=== PATIENT | male | born 1985 | race Caucasian/White ===

== ENCOUNTER 2020-03-02 17:52 | Outpatient (CLI) | payer OTHER, SELFPAY ==
--- NOTE | ~2020-03-02 | XR_ITS ---
EXAMINATION: XR chest 2V 03/02/2020 18:08 INDICATION: Dyspnea, shortness of breath and chest tightness PROCEDURE: 2 view chest COMPARISON: No prior studies for comparison. FINDINGS: The lungs are clear. The cardiomediastinal silhouette is within normal limits. There are no pleural effusions. There is no pneumothorax suspected. IMPRESSION: 1: NO ACUTE CARDIOPULMONARY DISEASE. Reviewed, dictated and finalized at location A.
== END 2020-03-02 17:53 | disposition home or self-care (01) ==
PROVIDERS: PCP Nurse Practitioner Family; Visit Provider Nurse Practitioner Family
DX: R06.00 Dyspnea, unspecified (principal)
CPT/HCPCS: 71046

== ENCOUNTER 2021-11-18 01:04 | Emergency (ER) | payer OTHER, SELFPAY ==
--- NOTE | ~2021-11-18 | XR_ITS ---
XR knee LT 2V DATE: 11/18/2021 01:56 INDICATION: Pain. History of the staff infection. TECHNIQUE: AP and lateral views COMPARISON: None FINDINGS: No fracture or dislocation or joint effusion. Joint spaces are preserved. No periosteal chris ction or bone destruction. No radiopaque intra-articular loose body or chondrocalcinosis. IMPRESSION: Negative Reviewed, dictated and finalized at location A. IMPRESSION: Negative
[2021-11-18 01:05] VITALS: BP 133/88; PULSE 89; RESP 16; TEMP 36.4; O2SAT 100
--- NOTE | 2021-11-18 01:23 | ED.WOUNDLAC ---
HPI - Wound/Laceration General Chief Complaint: Wound/Laceration Stated Complaint: left knee infection Time Seen by Provider: 11/18/21 01:12 History of Present Illness HPI narrative: Patient is a 36-year-old male here for evaluation of atraumatic left knee pain for the past 2 weeks. Patient states that the pain is worse with movement and with ambulation, although he has been able to do both. Has not attempted any medication for his pain. Got worse at work today while he was moving around which prompted his ED visit. He tells me that he has a history of a staph infection on his knee that was treated with oral antibiotics; denies history of septic arthritis. No fevers, chills, nausea, vomiting. Additionally notes that he has had trouble concentrating today while at work and has had some brain fog. No changes to vision, syncope, slurred speech. Related Data Home Medications Medication Instructions Recorded Confirmed No Home Medications 11/18/21 Allergies Allergy/AdvReac Type Severity Reaction Status Date / Time clindamycin AdvReac Intermediate Wheezing Verified 11/18/21 01:22 Review of Systems Review of Systems: Gen: Denies fevers or chills Eyes: Denies eye pain or visual change ENT: Denies congestion Respiratory: Denies shortness of breath or cough CV: Denies chest pain or palpitations GI: Denies abdominal pain nausea, emesis or diarrhea denies burning, urgency, frequency or hematuria Musculoskeletal: Reports knee pain Neuro: Denies numbness, tingling, weakness or focal weakness Skin: Denies rash Psych: reports trouble concentrating Except as documented, all other systems reviewed and negative Exam Narrative: APPEARANCE: Well appearing, no pain in distress, well-nourished. Head: Normocephalic and atraumatic. EYES: PERRLA/EOMI, conjunctivae clear NOSE: No nasal drainage EARS: External ear normal in appearance THROAT: Oropharynx is clear. Mucous membranes are moist. NECK: Supple. No adenopathy, no masses. No carotid bruits. RESPIRATORY: Airway patent, respirations nonlabored. Clear to auscultation bilaterally, no rales, rhonchi, wheezing. CARDIOVASCULAR: Regular rate and rhythm without murmurs, rubs, or gallops. ABDOMINAL: Normoactive bowel sounds. Soft, nontender, nondistended. No rebound tenderness or guarding. MUSCULOSKELETAL: Left knee with no tenderness to palpation, no pain with active or passive range of motion. Knee is warm. Able to bear weight. No ballottement of knee. No peripheral edema. NEURO: Cranial nerves II through XII intact. normal speech. SKIN: Skin is warm and dry. No rashes. PSYCHIATRIC: Normal affect/mood. Course Vital Signs Vital signs: Vital Signs Temperature 97.6 F 11/18/21 01:05 Pulse Rate 89 11/18/21 01:05 Respiratory Rate 16 11/18/21 01:05 Blood Pressure 133/88 11/18/21 01:05 Pulse Oximetry 100 11/18/21 01:05 Oxygen Delivery Room Air 11/18/21 01:05 Temperature 97.6 F 11/18/21 01:05 Pulse Rate 89 11/18/21 01:05 Respiratory Rate 16 11/18/21 01:05 Blood Pressure 133/88 11/18/21 01:05 Pulse Oximetry 100 11/18/21 01:05 Oxygen Delivery Room Air 11/18/21 01:05 MDM - Wound/Laceration MDM Narrative Medical decision making narrative: 36-year-old male here for evaluation of atraumatic knee pain for the past 2 weeks. His vital signs are normal, his left knee has no tenderness to palpation, able to go through full active range of motion and bear weight with only mild discomfort. Given this findings, very low suspicion for septic joint or gonococcal arthropathy. Low suspicion for ligamentous tear as he had no laxity or known injury. Preliminary read of x-ray with no acute disease. Informed patient of these findings, advised him to follow-up with his primary care provider next week, and also provided him with an orthopedist number to call in case his pain persists. Imaging Data My impression: XR of knee preliminary read with NAD Discharge
[2021-11-18] MEDS: ACETAMINOPHEN 325 MG TABLET 650 MG PO (01:27)
[2021-11-18] MEDS: IBUPROFEN 600 MG TABLET PO (01:28)
--- NOTE | 2021-11-18 01:29 | PC.NURSE ---
pt denies any known injury or trauma to L knee.
[2021-11-18 02:25] VITALS: BP 130/78; PULSE 62; RESP 16; O2SAT 100
== END 2021-11-18 02:26 | disposition home or self-care (01) ==
PROVIDERS: Emergency Provider Emergency Medicine; PCP Nurse Practitioner Family
DX: M25.562 Pain in left knee (principal)
CPT/HCPCS: 73560; 99283; A9270